=== PATIENT | male | born 1990 | race Caucasian/White ===

== ENCOUNTER → 2020-02-22 | Outpatient (CLI) | payer BC ==
[~2020-02-22] MED LIST: COVID-19 VACCINE (PFIZER)/PF 30 MCG/0.3 ML VIAL IM ONE; EPINEPHRINE INJ/PF 1 MG/1 ML AMPULE IM PRN
== END ==
LOC: EMPHEALTH 09:01
PROVIDERS: ATTEND Internal Medicine
DX: Z23 Encounter for immunization (principal)
CPT/HCPCS: 91300

== ENCOUNTER → 2020-03-14 | Outpatient (CLI) | payer BC ==
--- OUTSIDE RECORDS SUMMARY | 2020-03-14 09:00 | XMS REPORT ---
:1990 [facility] [place] [address] [place] [id number] Care Team Providers Name Role Phone Unavailable Unavailable Unavailable Allergies, Adverse Reactions, Alerts This patient has no known allergies or adverse reactions. Medications This patient has no known medications. Problems This patient has no known problems. Procedures This patient has no known procedures. Results Test Description Test Time Test Comments Text Results Atomic Results Result Comments THYROID STIMULATING HORMONE\S\ 2020-02-02 07:59:00 Test Item Value Reference Range Comments THYROID STIMULATING HORMONE (test code = TSHE) 2.24 uIU/mL 0 .47-4.68 COMPREHENSIVE METABOLIC PANEL\S\2020-02-02 07:59:00 Test Item Value Reference Range Comments ASPARTATE AMINO TRANSFERASE (test code = AST) 36 U/L 17 -59 CHLORIDE (test code = CL-1) 102 mmol/L 98-107 TOTAL PROTEIN (test code = TP) 8.1 g/dL 6.3-8.2 POTASSIUM (test code = K) 4.1 mmol/L 3.6-5.0 BILIRUBIN,TOTAL (test code = TBIL) 0.9 mg/dL 0.2-1.3 SODIUM (test code = NA) 139.4 mmol/L 137-145 EGFR,NON (test code = GFRN) > 60 >60 ALBUMIN (test code = ALB) 4.5 g/dL 3.5-5.0 BILIRUBIN,DIRECT (test code = BC) 0.1 mg/dL 0.0-0.4 CALCIUM (test code = CA) 9.4 mg/dL 8.4-10.2 ANION GAP (test code = ANION) 9 5-19 ALKALINE PHOSPHATASE (test code = ALKP) 65 U/L 38-126 EGFR, (test code = GFRAA) > 60 >60 BLOOD UREA NITROGEN (test code = BUN) 16 mg/dL 7-20 GLUCOSE (test code = GLU) 107 mg/dL 75-110 CREATININE RESULT (test code = CREA) 0.86 mg/dL 0.52-1.25 ALANINE AMINOTRANSFERASE (test code = ALTV) 38 U/L <50 CARBON DIOXIDE (test code = CO2) 28 mmol/L 22-30 LIPID PANEL\S\2020-02-02 07:59:00 Test Item Value Reference Range Comments CHOLESTEROL (test code = CHOL) 201.39 mg/dL 0-200 VLDL CHOLESTEROL (test code = VLDL) 40.6 mg/dL 10-31 Direct HDL (test code = DHDL) 42 mg/dL >40 TRIGLYCERIDES (test code = TRIG) 203 mg/dL <150 DIRECT LDL (test code = DLDL) 139 mg/dL <100 CBC WITH DIFF\S\2020-02-02 07:59:00 Test Item Value Reference Range Comments PLATELET COUNT (test code = PLT) 228 10 3/uL 150-450 ABSOLUTE MONOCYTES (AUTO) (test code = MO#) 0.7 10 3/uL 0.1- 1.4 MONOCYTES % (AUTO) (test code = MO%) 8.9 % 3-13 MEAN CORPUSCULAR VOLUME (test code = MCV) 85 fl 80-97 MEAN CORPUSCULAR HGB CONC (test code = MCHC) 34.2 g/dL 32. 0-36.0 MEAN CORPUSCULAR HEMOGLOBIN (test code = MCH) 28.9 pg 27 .0-33.4 ABSOLUTE NEUT (AUTO) (test code = NE#) 4.8 10 3/uL 1.7-8.2 ABSOLUTE EOSINOPHILS # (AUTO) (test code = EO#) 0.1 10 3/uL 0.0-0.6 RED BLOOD COUNT (test code = RBC) 5.37 10 6/uL 4.35-5.55 SEGMENTED NEUTROPHILS % (AUTO) (test code = 61.0 % 42-7 8 SEG%) ABSOLUTE BASOPHILS # (AUTO) (test code = BA#) 0.1 10 3/uL 0. 0-0.2 HEMOGLOBIN (test code = HGB) 15.5 g/dL 13.5-17.0 RED CELL DISTRIBUTION WIDTH (test code = RDW) 13.5 % 11 .5-14.0 HEMATOCRIT (test code = HCT) 45.4 % 37.9-51.0 ABSOLUTE LYMPHOCYTES (AUTO) (test code = LY#) 2.2 10 3/uL 0. 5-4.7 EOSINOPHILS % (AUTO) (test code = EO%) 1.5 % 0-6 LYMPHOCYTES % (AUTO) (test code = LY%) 27.9 % 13-45 BASOPHILS % (AUTO) (test code = BA%) 0.7 % 0-2 WHITE BLOOD COUNT (test code = WBC) 7.8 10 3/uL 4.0-10.5 HEMOGLOBIN A1C\S\2020-02-02 07:59:00 Test Item Value Reference Range Comments HEMOGLOBIN A1C (test code = A1CV) 5.6 % 4.7-6.0 Social History This patient has no known social history. Vital Signs This patient has no known vital signs.
== END ==
LOC: EMPHEALTH 08:57
PROVIDERS: ATTEND Internal Medicine
DX: Z23 Encounter for immunization (principal)
CPT/HCPCS: 91300